=== PATIENT | male | born 1990 | race Caucasian/White ===

== ENCOUNTER 2017-12-30 17:27 | Emergency (ER) | payer OTHER, MEDICAID ==
[~2017-12-30] VITALS: Ht 177.8 cm; Wt 59.0 kg
[~2017-12-30 17:27] MED LIST: AUGMENTIN 875-1 EACH PO; CEFDINIR300 MG PO; CIPRODEX OTIC7.5 ML OTIC; CORTISPORIN OTI10 M2 OTIC; NORCO 5-325 TA1 EACH PO; PERCOCET PO
[2017-12-30] MEDS ORDERED: NORCO 5-325 TA1 EAC1 PO (18:24)
[2017-12-30] MEDS ORDERED: KEFLEX500 M1 PO (18:24)
[2017-12-30] MEDS ORDERED: IBU600 MG PO (18:24)
[2017-12-30 18:48] VITALS: BP 106/44
== END 2017-12-30 18:49 | disposition home or self-care (01) ==
LOC: M.ERS 17:27
DX: S61.313A Laceration without foreign body of left middle finger with damage to nail, initial encounter (principal); S60.132A Contusion of left middle finger with damage to nail, initial encounter; F17.210 Nicotine dependence, cigarettes, uncomplicated; J45.909 Unspecified asthma, uncomplicated; X58.XXXA Exposure to other specified factors, initial encounter; Y93.89 Activity, other specified; Y92.89 Other specified places as the place of occurrence of the external cause; Y99.8 Other external cause status